=== PATIENT | female | born 1935 | race Caucasian/White ===

== ENCOUNTER → 2016-10-03 | Outpatient (CLI) | payer MEDICARE, OTHER ==
[~2016-10-03] MED LIST: AMLO10TA82 PO; ASPI-134 PO; ASPI-860 PO; CEPH500C PO; GBPN300C PO; LETR2.5T5 PO; LSNP20T PO; ONDAN4ODT PO; ONDN4T PO; OXYC-109 PO; PROP40TA5 PO; SIMV40TA2 PO; TRAM-25 PO
[2016-10-03 08:08] LABS: MEAN CORPUSCULAR HEMOGLOBIN 31.3 PG (26.0-34.0); MEAN CORPUSCULAR HGB CONC 32.3 g/dL (31.0-37.0); MEAN CORPUSCULAR VOLUME 97 FL (80-100); MEAN PLATELET VOLUME 9.7 FL (6.0-9.5); PLATELET COUNT 175 10^3uL (150-450); WHITE BLOOD COUNT 3.49 10^3uL (4.0-11.0)
[2016-10-03 08:14] LABS: BAND NEUTROPHILS % 1 % (0-6); EOSINOPHILS % 4 % (0-4); LYMPHOCYTES # 1.4 #; MONOCYTES # 0.2 #; MONOCYTES % 7 % (3-11); RBC MORPH NORMAL (NORMAL); SEGMENTED NEUTROPHILS % 46 % (51-67); TOTAL CELLS COUNTED 100
[2016-10-03 08:58] LABS: ANION GAP 15.5 MEQ/L (3-15); CALCULATED IONIZED CALCIUM 4.4 mg/dL (3.8-4.6); MAGNESIUM* 2.1 mg/dL (1.6-2.3); PHOSPHORUS 4.1 mg/dL (2.4-4.9); TOTAL PROTEIN 6.5 g/dL (6.4-8.5)
[2016-10-03 15:11] LABS: IRON 93 ug/dL (50-170); UNBOUND IRON CONTENT 176 ug/dl (126-382)
[2016-10-04 23:09] LABS: CA 27.29 C <12.0 U/mL (<=38.0)
== END ==
LOC: LAB 07:51
PROVIDERS: ATTEND Internal Medicine Hematology & Oncology
DX: C50.311 Malignant neoplasm of lower-inner quadrant of right female breast (principal)
CPT/HCPCS: 36415; 80053; 82306; 82728; 82746; 83540; 83550; 83615; 83735; 84100; 85007; 85027; 86300

== ENCOUNTER 2017-02-17 17:49 | Emergency (ER) | payer MEDICARE, OTHER ==
[~2017-02-17] VITALS: Ht 157.5 cm; Wt 71.2 kg
--- OUTSIDE RECORDS SUMMARY | 2017-02-17 17:55 | XMS REPORT | Continuity of Care Document ---
Author Author [facility] Address Unknown Phone Unavailable Allergies Active Description Code Type Severity Reaction Onset Reported/Identified Relationship to Patient Clinical Status Yes No Known Allergies [id number] Drug Allergy Unknown N/A 12/28/2012 Yes CIPROL CIPROL Unknown N/A 09/07/2013 Yes ciprofloxacin [id number] Drug Allergy Unknown N/A 11/05/2015 Yes ibuprofen [id number] Drug Allergy Unknown N/A 11/05/2015 Medications Problems Date Dx Coded Attending Type Code Diagnosis Diagnosed By 01/14/2013 Ot 366.9 01/14/2013 Ot 368.8 04/01/2013 Ot 366.9 04/01/2013 Ot 368.8 07/20/2013 PARVIZ STRAUSS, ERIN Bartlett Ot 592.1 07/20/2013 ERIN JJ MD Ot 789.09 09/07/2013 SURESH CALIX DO Ot 592.1 09/07/2013 SURESH CALIX DO Ot 789.09 04/22/2014 Puma Pierce Ot 354.8 04/22/2014 Puma Pierce Ot V57.1 08/12/2014 Ot V49.81 08/12/2014 Ot V76.12 08/12/2014 Ot 272.4 08/12/2014 Ot 401.9 08/12/2014 Ot V81.6 08/12/2014 SUSAN STRAUSS, PB Louise Ot V76.12 08/12/2014 SUSAN STRAUSS, PB Louise Ot 611.79 08/12/2014 SUSAN STRAUSS, PB Louise Ot 288.60 08/12/2014 SUSAN STRAUSS, PB Louise Ot 599.72 08/12/2014 SUSAN STRAUSS, PB Louise Ot 724.5 08/12/2014 SUSAN STRAUSS, PB Louise Ot 789.60 08/12/2014 Ngoc STRAUSS, Puma Marcos Ot 592.9 08/12/2014 SUSAN STRAUSS, BP Louise Ot 786.6 08/12/2014 SUSAN STRAUSS, PB Louise Ot 793.2 08/12/2014 SUSAN STRAUSS, PB Louise Ot 592.0 08/12/2014 SUSAN STRAUSS, PB Louise Ot V67.59 08/12/2014 Ngoc STRAUSS, Puma Marcos Ot 592.0 08/12/2014 Ngoc STRAUSS, Puma Marcos Ot 272.4 08/12/2014 Ngoc STRAUSS, Puma Marcos Ot 592.0 08/12/2014 Ngoc STRAUSS, Puma Marcos Ot V45.89 08/12/2014 Ngoc STRAUSS, Puma Marcos Ot V58.69 08/12/2014 Ngoc STRAUSS, Puma Marcos Ot 592.0 08/12/2014 Ngoc STRAUSS, Puma Marcos Ot 592.0 08/12/2014 SUSAN STRAUSS, PB Louise Ot 793.82 08/12/2014 Ngoc STRAUSS, Puma Marcos Ot 599.0 08/12/2014 Ngoc STRAUSS, Puma Marcos Ot 592.0 08/12/2014 Ot 354.8 08/12/2014 Ot V57.1 08/12/2014 SUSAN STRAUSS, PB Louise Ot 288.60 08/12/2014 SUSAN STRAUSS, PB Louise Ot 599.72 08/12/2014 SUSAN STRAUSS, PB Louise Ot 724.5 08/12/2014 SUSAN STRAUSS, PB Louise Ot 789.60 09/06/2014 NIDA STRAUSS, KERA Rivas Ot 719.45 09/06/2014 NIDA STRAUSS, KERA Rivas Ot 721.3 09/12/2014 [facility], IJEOMA L DYE ROOM HELPER Ot 553.1 09/12/2014 [facility], IJEOMA L DYE ROOM HELPER Ot 562.10 [facility] 576.8 09/12/2014 WILGERS, IJEOMA L DYE ROOM HELPER Ot 592.0 09/12/2014 WILGERS, IJEOMA L DYE ROOM HELPER Ot 599.70 09/12/2014 WILGERS, IJEOMA L DYE ROOM HELPER Ot 722.30 09/12/2014 WILGERS, IJEOMA L DYE ROOM HELPER Ot 724.2 09/12/2014 WILGERS, IJEOMA L DYE ROOM HELPER Ot 793.11 09/15/2014 [facility], IJEOMA L DYE ROOM HELPER Ot 424.0 09/15/2014 WILGERS, IJEOMA L DYE ROOM HELPER Ot 782.3 09/15/2014 SCOTTIJEOMA L DYE ROOM HELPER Ot 785.9 09/29/2014 BAYRONBLANCAIJEOMA DYE ROOM HELPER Ot 599.70 10/09/2014 Ot V49.81 10/09/2014 Ot V76.12 10/09/2014 Ot 272.4 10/09/2014 Ot 401.9 10/09/2014 Ot V81.6 10/09/2014 SUSAN STRAUSS, PB Louise Ot V76.12 10/09/2014 SUSAN STRAUSS, PB Louise Ot 611.79 10/09/2014 SUSAN STRAUSS, PB Louise Ot 288.60 10/09/2014 SUSAN STRAUSS, PB Louise Ot 599.72 10/09/2014 SUSAN STRAUSS, PB Louise Ot 724.5 10/09/2014 SUSAN STRAUSS, PB Louise Ot 789.60 10/09/2014 Ngoc STRAUSS, Puma Marcos Ot 592.9 10/09/2014 SUSAN STRAUSS, PB Louise Ot 786.6 10/09/2014 SUSAN STRAUSS, PB Louise Ot 793.2 10/09/2014 SUSAN STRAUSS, PB Louise Ot 592.0 10/09/2014 SUSAN STRAUSS, PB Louise Ot V67.59 10/09/2014 Ngoc STRAUSS, Puma Marcos Ot 592.0 10/09/2014 Ngoc STRAUSS, Puma Marcos Ot 272.4 10/09/2014 Ngoc STRAUSS, Puma Marcos Ot 592.0 10/09/2014 Ngoc STRAUSS, Puma Marcos Ot V45.89 10/09/2014 Ngoc STRAUSS, Puma Marcos Ot V58.69 10/09/2014 Ngoc STRAUSS, Puma Marcos Ot 592.0 10/09/2014 Ngoc STRAUSS, Puma Marcos Ot 592.0 10/09/2014 SUSAN STRAUSS, PB Louise Ot 793.82 10/09/2014 Ngoc STRAUSS, Puma Marcos Ot 599.0 10/09/2014 Ngoc STRAUSS, Puma Marcos Ot 592.0 10/09/2014 Ot 354.8 10/09/2014 Ot V57.1 10/09/2014 NIDA STRAUSS, KERA Rivas Ot 719.45 10/09/2014 NIDA STRAUSS, KERA Rivas Ot 721.3 10/09/2014 SCOTT IJEOMA L DYE ROOM HELPER Ot 599.0 10/09/2014 WILGERS, IJEOMA L DYE ROOM HELPER Ot 599.70 10/09/2014 WILGERS, IJEOMA L DYE ROOM HELPER Ot 782.3 10/09/2014 WILGERS, IJEOMA L DYE ROOM HELPER Ot 790.29 10/09/2014 WILGERS, IJEOMA L DYE ROOM HELPER Ot 424.0 10/09/2014 WILGERS, IJEOMA L DYE ROOM HELPER Ot 782.3 10/09/2014 WILGERS, IJEOMA L DYE ROOM HELPER Ot 785.9 10/09/2014 WILGERS, IJEOMA L DYE ROOM HELPER Ot 553.1 10/09/2014 WILGERS, IJEOMA L DYE ROOM HELPER Ot 562.10 10/09/2014 WILGERS, IJEOMA L DYE ROOM HELPER Ot 576.8 10/09/2014 WILGERS, IJEOMA L DYE ROOM HELPER Ot 592.0 10/09/2014 WILGERS, IJEOMA L DYE ROOM HELPER Ot 599.70 10/09/2014 WILGERS, IJEOMA L DYE ROOM HELPER Ot 722.30 10/09/2014 WILGERS, IJEOMA L DYE ROOM HELPER Ot 724.2 10/09/2014 WILGERS, IJEOMA L DYE ROOM HELPER Ot 793.11 10/09/2014 WILGERS, IJEOMA L DYE ROOM HELPER Ot 599.70 10/30/2014 Ngoc STRAUSS, Puma Marcos Ot 592.0 10/30/2014 Ngoc STRAUSS, Puma Marcos Ot 592.0 12/17/2014 Ot 272.4 12/17/2014 Ot 401.9 12/17/2014 Ot 729.5 12/23/2014 Ot 721.3 12/23/2014 Ot 722.10 12/23/2014 Ot 724.2 12/23/2014 Ot 753.10 01/12/2015 SUSAN STRAUSS, PB Louise Ot 786.6 01/12/2015 SUSAN STRAUSS, PB Louise Ot 793.2 01/12/2015 SUSAN STRAUSS, PB Louise Ot 592.0 01/12/2015 SUSAN STRAUSS, PB Louise Ot V67.59 01/12/2015 Ngoc STRAUSS, Puma Marcos Ot 592.0 01/12/2015 Ngoc STRAUSS, Puma Marcos Ot 272.4 01/12/2015 Ngoc STRAUSS, Pmua Marcos Ot 592.0 01/12/2015 Ngoc STRAUSS, Puma Marcos Ot V45.89 01/12/2015 Ngoc STRAUSS, Puma Marcos Ot V58.69 01/12/2015 Ngoc STRAUSS, Puma Marcos Ot 592.0 01/12/2015 Ngoc STRAUSS, Puma Marcos Ot 592.0 01/12/2015 SUSAN STRAUSS, PB Louise Ot 793.82 01/12/2015 Ngoc STRAUSS, Puma Marcos Ot 599.0 01/12/2015 Ngoc STRAUSS, Puma Marcos Ot 592.0 01/12/2015 Ot 354.8 01/12/2015 Ot V57.1 01/12/2015 SUSAN STRAUSS, PB Louise Ot 786.6 01/12/2015 SUSAN STRAUSS, PB Louise Ot 793.2 01/12/2015 SUSAN STRAUSS, PB Louise Ot 592.0 01/12/2015 SUSAN STRAUSS, PB Louise Ot V67.59 01/12/2015 Ngoc STRAUSS, Puma Marcos Ot 592.0 01/12/2015 Ngoc STRAUSS, Puma Marcos Ot 272.4 01/12/2015 Ngoc STRAUSS, Puma Marcos Ot 592.0 01/12/2015 Ngoc STRAUSS, Puma Marcos Ot V45.89 01/12/2015 Ngoc STRAUSS, Puma Marcos Ot V58.69 01/12/2015 Ngoc STRAUSS, Puma Marcos Ot 592.0 01/12/2015 Ngoc STRAUSS, Puma Marcos Ot 592.0 01/12/2015 SUSAN STRAUSS, PB Louise Ot 793.82 01/12/2015 Ngoc STRAUSS, Puma Marcos Ot 599.0 01/12/2015 Ngoc STRAUSS, Puma Marcos Ot 592.0 01/12/2015 Ot 354.8 01/12/2015 Ot V57.1 01/12/2015 SUSAN STRAUSS, PB Louise Ot 288.60 01/12/2015 SUSAN STRAUSS, PB Louise Ot 599.72 01/12/2015 SUSAN STRAUSS, PB Louise Ot 724.5 01/12/2015 SUSAN STRAUSS, PB Louise Ot 789.60 01/12/2015 NIDA STRAUSS, KERA Rivas Ot 719.45 01/12/2015 NIDA STRAUSS, KERA Rivas Ot 721.3 01/12/2015 IJEOMA CHAVEZ L DYE ROOM HELPER Ot 599.0 01/12/2015 IJEOMA CHAVEZ L DYE ROOM HELPER Ot 599.70 01/12/2015 SCOTT IJEOMA L DYE ROOM HELPER Ot 782.3 01/12/2015 WILGERS, IJEOMA L DYE ROOM HELPER Ot 790.29 01/12/2015 WILGERS, IJEOMA L DYE ROOM HELPER Ot 424.0 01/12/2015 WILGERS, IJEOMA L DYE ROOM HELPER Ot 782.3 01/12/2015 WILGERS, IJEOMA L DYE ROOM HELPER Ot 785.9 01/12/2015 WILGERS, IJEOMA L DYE ROOM HELPER Ot 553.1 01/12/2015 WILGERS, IJEOMA L DYE ROOM HELPER Ot 562.10 01/12/2015 WILGERS, IJEOMA L DYE ROOM HELPER Ot 576.8 01/12/2015 WILGERS, IJEOMA L DYE ROOM HELPER Ot 592.0 01/12/2015 WILGERS, IJEOMA L DYE ROOM HELPER Ot 599.70 01/12/2015 WILGERS, IJEOMA L DYE ROOM HELPER Ot 722.30 01/12/2015 WILGERS, IJEOMA L DYE ROOM HELPER Ot 724.2 01/12/2015 WILGERS, IJEOMA L DYE ROOM HELPER Ot 793.11 01/12/2015 WILGERS, IJEOMA L DYE ROOM HELPER Ot 599.70 01/12/2015 Ngoc STRAUSS, Puma Marcos Ot 592.0 01/12/2015 Ot 721.3 01/12/2015 Ot 722.10 01/12/2015 Ot 724.2 01/12/2015 Ot 753.10 01/12/2015 Ot 272.4 01/12/2015 Ot 401.9 01/12/2015 Ot 729.5 02/05/2015 Manguoglu, Ali B Ot 722.52 02/12/2015 Manguoglu, Ali B Ot 724.00 02/12/2015 WILGERS, IJEOMA L DYE ROOM HELPER Ot 272.4 02/19/2015 SUSAN STRAUSS, PB Louise Ot 288.60 02/19/2015 SUSAN STRAUSS, PB Louise Ot 599.72 02/19/2015 SUSAN STRAUSS, PB Louise Ot 724.5 02/19/2015 SUSAN STRAUSS, PB Louise Ot 789.60 02/19/2015 NIDA STRAUSS, KERA Rivas Ot 719.45 02/19/2015 NIDA STRAUSS, KERA Rivas Ot 721.3 02/19/2015 WILGERS, IJEOMA L DYE ROOM HELPER Ot 599.0 02/19/2015 WILGERS, IJEOMA L DYE ROOM HELPER Ot 599.70 02/19/2015 WILGERS, IJEOMA L DYE ROOM HELPER Ot 782.3 02/19/2015 WILGERS, IJEOMA L DYE ROOM HELPER Ot 790.29 02/19/2015 WILGERS, IJEOMA L DYE ROOM HELPER Ot 424.0 02/19/2015 WILGERS, IJEOMA L DYE ROOM HELPER Ot 782.3 02/19/2015 WILGERS, IJEOMA L DYE ROOM HELPER Ot 785.9 02/19/2015 WILGERS, IJEOMA L DYE ROOM HELPER Ot 553.1 02/19/2015 WILGERS, IJEOMA L DYE ROOM HELPER Ot 562.10 02/19/2015 WILGERS, IJEOMA L DYE ROOM HELPER Ot 576.8 02/19/2015 WILGERS, IJEOMA L DYE ROOM HELPER Ot 592.0 02/19/2015 WILGERS, IJEOMA L DYE ROOM HELPER Ot 599.70 02/19/2015 WILGERS, IJEOMA L DYE ROOM HELPER Ot 722.30 02/19/2015 WILGERS, IJEOMA L DYE ROOM HELPER Ot 724.2 02/19/2015 WILGERS, IJEOMA L DYE ROOM HELPER Ot 793.11 02/19/2015 WILGERS, IJEOMA L DYE ROOM HELPER Ot 599.70 02/19/2015 Ngoc STRAUSS, Puma Marcos Ot 592.0 02/19/2015 Ot 721.3 02/19/2015 Ot 722.10 02/19/2015 Ot 724.2 02/19/2015 Ot 753.10 02/19/2015 Ot 272.4 02/19/2015 Ot 401.9 02/19/2015 Ot 729.5 02/19/2015 Manguoglu, Ali B Ot 722.52 02/19/2015 WILGERS, IJEOMA L DYE ROOM HELPER Ot 272.4 02/19/2015 Manguoglu, Ali B Ot 724.00 02/20/2015 Manguoglu, Ali B Ot 724.2 02/20/2015 Manguoglu, Ali B Ot V57.1 02/24/2015 Manguoglu, Ali B Ot 724.00 03/05/2015 Manguoglu, Ali B Ot 724.2 03/05/2015 Manguoglu, Ali B Ot V57.1 03/18/2015 WILGERS, IJEOMA L DYE ROOM HELPER Ot 793.82 03/18/2015 WILGERS, IJEOMA L DYE ROOM HELPER Ot V76.12 04/02/2015 WILGERS, IJEOMA L DYE ROOM HELPER Ot 611.79 06/04/2015 ELANA STRAUSS, ELEONORA J Ot 174.9 06/05/2015 ELANA STRAUSS, ELEONORA Ross Ot V64.3 06/10/2015 ELANA STRAUSS, ELEONORA J Ot 174.9 06/10/2015 ELANA STRAUSS, ELEONORA J Ot 174.9 06/10/2015 ELANA STRAUSS, ELEONORA J Ot 174.9 06/22/2015 NIDA STRAUSS, KERA Rivas Ot 174.9 06/22/2015 NIDA STRAUSS, KERA M Ot 272.4 06/22/2015 NIDA STRAUSS, KERA M Ot 401.9 06/24/2015 ELANA STRAUSS, ELEONORA J Ot 174.9 06/24/2015 ELANA STRAUSS, ELEONORA Ross Ot 174.9 07/01/[facility] 611.79 07/10/2015 NIDA STRAUSS, KERA M Ot 174.9 07/10/2015 NIDA STRAUSS, KERA M Ot 272.4 07/10/2015 NIDA STRAUSS, KERA M Ot 401.9 07/13/2015 NIDA STRAUSS, KERA M Ot 174.9 07/13/2015 NIDA STRAUSS, KERA M Ot 272.4 07/13/2015 NIDA STRAUSS, KERA M Ot 401.9 07/13/2015 NIDA STRAUSS, KERA M Ot 174.9 07/13/2015 NIDA STRAUSS, KERA M Ot 272.4 07/13/2015 NIDA STRAUSS, KERA M Ot 401.9 07/14/2015 IJEOMA CHAVEZ DYE ROOM HELPER Ot 611.79 07/14/2015 IJEOMA CHAVEZ DYE ROOM HELPER Ot 611.79 07/30/2015 ELEONORA HUITRON MD Ot 174.9 07/30/2015 ELEONORA HUITRON MD Ot C50.311 07/30/2015 ELEONORA HUITRON MD J Ot C50.919 08/10/2015 ELEONORA HUITRON MD J Ot C50.311 08/10/2015 ELEONORA HUITRON MD J Ot C50.919 09/08/2015 ELEONORA HUITRON MD Ot C50.311 09/08/2015 ELEONORA HUITRON MD Ot C50.919 09/24/2015 IJEOMA CHAVEZ DYE ROOM HELPER Ot E78.5 09/27/2015 ELEONORA HUITRON MD Ot C50.311 09/27/2015 ELEONORA HUITRON MD Ot C50.919 10/28/2015 Ngoc STRAUSS, Puma Marcos Ot N20.0 10/28/2015 Ngoc STRAUSS, Puma Marcos Ot Z87.442 11/05/2015 CATARINA STRAUSS, KINA Ot T81.31XA 11/05/2015 CATARINA STRAUSS, KINA Ot T81.4XXA 11/05/2015 CATARINA STRAUSS, KINA Ot Z90.11 11/05/2015 Ot 354.8 11/05/2015 Ot V57.1 11/05/2015 ELANA STRAUSS, ELEONORA Ross Ot C50.311 11/05/2015 ELANA STRAUSS, ELEONORA Ross Ot C50.919 11/05/2015 Ot 354.8 11/05/2015 Ot V57.1 11/05/2015 ELANA STRAUSS, ELEONORA Ross Ot C50.311 11/05/2015 ELANA STRAUSS, ELEONORA Ross Ot C50.919 11/16/2015 Ngoc STRAUSS, Puma Marcos Ot N20.0 11/16/2015 Ngoc STRAUSS, Puma Marcos Ot Z87.442 11/20/2015 ELANA STRAUSS, ELEONORA Ross Ot C50.311 12/20/2015 ELANA STRASUS, ELEONORA J Ot C50.311 01/04/2016 WILGERS, IJEOMA L DYE ROOM HELPER Ot 611.79 01/07/2016 WILGERS, IJEOMA L DYE ROOM HELPER Ot R53.83 01/07/2016 WILGERS, IJEOMA L DYE ROOM HELPER Ot R53.83 01/12/2016 WILGERS, IJEOMA L DYE ROOM HELPER Ot D64.9 ANEMIA, UNSPECIFIED 01/12/2016 WILGERS, IJEOMA L DYE ROOM HELPER Ot D64.9 ANEMIA, UNSPECIFIED 01/14/2016 WILGERS, IJEOMA L DYE ROOM HELPER Ot 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 01/14/2016 WILGERS, IJEOMA L DYE ROOM HELPER Ot I10 ESSENTIAL (PRIMARY) HYPERTENSION 01/14/2016 WILGERS, IJEOMA L DYE ROOM HELPER Ot R53.83 OTHER FATIGUE 01/17/2016 WILGERS, IJEOMA L DYE ROOM HELPER Ot D64.9 ANEMIA, UNSPECIFIED 01/24/2016 WILGERS, IJEOMA L DYE ROOM HELPER Ot D64.9 ANEMIA, UNSPECIFIED 01/28/2016 WILGERS, IJEOMA L DYE ROOM HELPER Ot D64.9 ANEMIA, UNSPECIFIED 02/02/2016 WILGERS, IJEOMA L DYE ROOM HELPER Ot 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 02/02/2016 WILGERS, IJEOMA L DYE ROOM HELPER Ot I10 ESSENTIAL (PRIMARY) HYPERTENSION 02/02/2016 WILGERS, IJEOMA L DYE ROOM HELPER Ot R53.83 OTHER FATIGUE 02/03/2016 WILGERS, IJEOMA L DYE ROOM HELPER Ot D64.9 ANEMIA, UNSPECIFIED 02/11/2016 WILGERS, IJEOMA L DYE ROOM HELPER Ot D64.9 ANEMIA, UNSPECIFIED 02/23/2016 WILGERS, IJEOMA L DYE ROOM HELPER Ot C50.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 NEOPLASM OF UNSP SITE OF RIGHT 02/23/2016 WILGERS, IJEOMA L DYE ROOM HELPER Ot C50.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 NEOPLASM OF UNSP SITE OF RIGHT 02/23/2016 WILGERS, IJEOMA L DYE ROOM HELPER Ot C50.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 NEOPLASM OF UNSP SITE OF RIGHT 02/25/2016 WILGERS, IJEOMA L DYE ROOM HELPER Ot R91.1 SOLITARY PULMONARY NODULE 02/25/2016 WILGERS, IJEOMA L DYE ROOM HELPER Ot Z85.3 PERSONAL HISTORY OF MALIGNANT NEOPLASM O 03/15/2016 WILGERS, IJEOMA L DYE ROOM HELPER Ot R91.1 SOLITARY PULMONARY NODULE 03/15/2016 WILGERS, IJEOMA L DYE ROOM HELPER Ot Z85.3 PERSONAL HISTORY OF MALIGNANT NEOPLASM O 04/04/2016 WILGERS, IJEOMA L DYE ROOM HELPER Ot D64.9 ANEMIA, UNSPECIFIED 04/04/2016 WILGERS, IJEOMA L DYE ROOM HELPER Ot D64.9 ANEMIA, UNSPECIFIED 04/04/2016 WILGERS, IJEOMA L DYE ROOM HELPER Ot D64.9 ANEMIA, UNSPECIFIED 04/07/2016 WILGERS, IJEOMA L DYE ROOM HELPER Ot D64.9 ANEMIA, UNSPECIFIED 04/18/2016 ELEONORA HUITRON MD Ot 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 04/18/2016 ELEONORA HUITRON MD Ot 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 04/22/2016 ELEONORA HUITRON MD Ot 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 05/13/2016 ELEONORA HUITRON MD Ot 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 05/16/2016 WILGERSIJEOMA L DYE ROOM HELPER Ot D64.9 ANEMIA, UNSPECIFIED 05/18/2016 ELEONORA HUITRON MD Ot 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 05/23/2016 NIDA STRAUSS, KERA Rivas Ot M48.00 SPINAL STENOSIS, SITE UNSPECIFIED 05/23/2016 NIDA STRAUSS, KERA Rivas Ot M54.5 LOW BACK PAIN 06/09/2016 NIDA STRAUSS, KERA Rivas Ot M48.00 SPINAL STENOSIS, SITE UNSPECIFIED 06/09/2016 NIDA STRAUSS, KERA Rivas Ot M54.5 LOW BACK PAIN 06/10/2016 NIDA STRAUSS, KERA Rivas Ot M48.06 SPINAL STENOSIS, LUMBAR REGION 06/10/2016 NIDA STRAUSS, KERA Rivas Ot M54.5 LOW BACK PAIN 06/13/2016 NIDA STRAUSS, KERA Rivas Ot M48.06 SPINAL STENOSIS, LUMBAR REGION 06/13/2016 NIDA STRAUSS, KERA Rivas Ot M54.5 LOW BACK PAIN 06/17/2016 NIDA STRAUSS, KERA Rivas Ot M48.06 SPINAL STENOSIS, LUMBAR REGION 06/17/2016 NIDA STRAUSS, KERA Rivas Ot M54.5 LOW BACK PAIN 06/23/2016 NIDA STRAUSS, KERA Rivas Ot M48.06 SPINAL STENOSIS, LUMBAR REGION 06/23/2016 NIDA STRAUSS, KERA Rivas Ot M54.5 LOW BACK PAIN 06/29/2016 NIDA STRAUSS, KERA Rivas Ot M48.06 SPINAL STENOSIS, LUMBAR REGION 06/29/2016 NIDA STRAUSS, KERA Rivas Ot M54.5 LOW BACK PAIN 07/04/2016 NIDA STRAUSS, KERA Rivas Ot M48.06 SPINAL STENOSIS, LUMBAR REGION 07/04/2016 NIDA STRAUSS, KERA Rivas Ot M54.5 LOW BACK PAIN 07/04/2016 NIDA STRAUSS, KERA Rivas Ot M48.06 SPINAL STENOSIS, LUMBAR REGION 07/04/2016 NIDA STRAUSS, KERA Rivas Ot M54.5 LOW BACK PAIN 07/11/2016 ELEONORA HUITRON MD J Ot 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 07/11/2016 ELEONORA HUITRON MD J Ot 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 07/11/2016 NIDA STRAUSS, KERA Rivas Ot M48.06 SPINAL STENOSIS, LUMBAR REGION 07/11/2016 NIDA STRAUSS, KERA Rivas Ot M54.5 LOW BACK PAIN 07/11/2016 NIDA STRAUSS, KERA Rivas Ot M48.06 SPINAL STENOSIS, LUMBAR REGION 07/11/2016 NIDA STRAUSS, KERA Rivas Ot M54.5 LOW BACK PAIN 07/13/2016 ELEONORA HUITRON MD J Ot 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 07/14/2016 ELEONORA HUITRON MD J Ot 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 07/17/2016 NIDA STRAUSS, KERA Rivas Ot M48.06 SPINAL STENOSIS, LUMBAR REGION 07/17/2016 NIDA STRAUSS, KERA Rivas Ot M54.5 LOW BACK PAIN 07/17/2016 NIDA STRAUSS, KERA Rivas Ot M48.06 SPINAL STENOSIS, LUMBAR REGION 07/17/2016 KERA ALVA MD Ot M54.5 LOW BACK PAIN 07/18/2016 NIDA STRAUSS, KERA Rivas Ot M48.07 SPINAL STENOSIS, LUMBOSACRAL REGION 07/18/2016 NIDA STRAUSS, KERA Rivas Ot M54.17 RADICULOPATHY, LUMBOSACRAL REGION 07/18/2016 NIDA STRAUSS, KERA Rivas Ot M62.81 MUSCLE WEAKNESS (GENERALIZED) 07/18/2016 NIDA STRAUSS, KERA Rivas Ot M79.604 PAIN IN RIGHT LEG 07/18/2016 KERA ALVA MD Ot M79.605 PAIN IN LEFT LEG 07/21/2016 KERA ALVA MD Ot M48.06 SPINAL STENOSIS, LUMBAR REGION 07/21/2016 KERA ALVA MD Ot M54.5 LOW BACK PAIN 07/21/2016 KERA ALVA MD Ot M48.06 SPINAL STENOSIS, LUMBAR REGION 07/21/2016 NIDA STRAUSS, KERA Rivas Ot M54.5 LOW BACK PAIN 08/02/2016 NIDA STRAUSS, KERA Rivas Ot M48.07 SPINAL STENOSIS, LUMBOSACRAL REGION 08/02/2016 KERA ALVA MD Ot M54.17 RADICULOPATHY, LUMBOSACRAL REGION 08/02/2016 KERA ALVA MD Ot M62.81 MUSCLE WEAKNESS (GENERALIZED) 08/02/2016 KERA ALVA MD Ot M79.604 PAIN IN RIGHT LEG 08/02/2016 KERA ALVA MD Ot M79.605 PAIN IN LEFT LEG 08/02/2016 ELEONORA HUITRON MD Ot 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 08/14/2016 KERA ALVA MD Ot M48.06 SPINAL STENOSIS, LUMBAR REGION 08/14/2016 KERA ALVA MD Ot M54.5 LOW BACK PAIN 08/15/2016 ELEONORA HUITRON MD Ot 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 08/15/2016 WILGERS, IJEOMA L DYE ROOM HELPER Ot D64.9 ANEMIA, UNSPECIFIED 08/15/2016 ELEONORA HUITRON MD Ot 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 08/15/2016 NIDA STRAUSS, KERA Rivas Ot M48.00 SPINAL STENOSIS, SITE UNSPECIFIED 08/15/2016 NIDA STRAUSS, KERA Rivas Ot M54.5 LOW BACK PAIN 08/26/2016 NIDA STRAUSS, KERA Rivas Ot M48.06 SPINAL STENOSIS, LUMBAR REGION 08/26/2016 NIDA STRAUSS, KERA Rivas Ot M54.5 LOW BACK PAIN 10/03/2016 ELEONORA HUITRON MD Ot 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 10/03/2016 ELEONORA HUITRON MD Ot 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 10/05/2016 ELEONORA HUITRON MD Ot 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 10/07/2016 ELEONORA HUITRON MD Ot 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 10/25/2016 ELEONORA HUITRON MD Ot 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 11/11/2016 ELEONORA HUITRON MD Ot 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 02/17/2017 ELEONORA HUITRON MD Ot E78.5 HYPERLIPIDEMIA, UNSPECIFIED 02/17/2017 ELEONORA HUITRON MD Ot 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 02/17/2017 ELEONORA HUITRON MD Ot Z79.899 OTHER LICENSED VOCATIONAL NURSE (CURRENT) DRUG THERAPY 02/17/2017 ELEONORA HUITRON MD Ot Z79.899 OTHER LICENSED VOCATIONAL NURSE (CURRENT) DRUG THERAPY 02/17/2017 ELEONORA HUITRON MD, Ot E78.5 HYPERLIPIDEMIA, UNSPECIFIED 02/17/2017 ELEONORA HUITRON MD Ot 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 02/17/2017 ELEONORA HUITRON MD Ot Z79.899 OTHER CUSTODIAL (CURRENT) DRUG THERAPY Procedures Code Description Performed By Performed On [id number] INTRODUCE OF ANTI-INFLAM INTO EPIDURAL S 05/16/2016 [id number] INTRODUCE OF LOCAL ANESTH INTO EPIDURAL 05/16/2016 [id number] 06/29/2016 [id number] 06/29/2016 Results Test Result Range CBC AND MANUAL DIFF - 07/11/16 08:37 Blood automated leukocyte count 3.87 4.0 -11.0 Erythrocytes 3.43 4.00-5.00 12.0-16.0;g/dL 11.1 12.0-15.5 Hematocrit 33.20 35.00-45.00 Automated erythrocyte mean corpuscular volume 97 80-100 Mean corpuscular hemoglobin (MCH) determination 32.4 26.0-34.0 Automated erythrocyte mean corpuscular hemoglobin concentration measurement ( mass/volume) 33.4 31.0-37.0 Erythrocyte distribution width 13.2 11.8 -15.6 Automated blood platelet count 164 150- 450 Automated blood platelet mean volume measurement 9.9 6.0-9.5 Total cell count 100 Blood segmented neutrophils percentage 67 51-67 Blood band neutrophil count as percentage of total leukocytes 2 0-6 LYMPHOCYTES % 22 20-46 Automated monocyte percentage 3 3-11 Eosinophil count auto 6 0-4 Basophils 0 0-2 Manual blood metamyelocytes/100 leukocytes 0 0-1 NEUTROPHILS(SEG) 2.6 NEUTROPHILS # BANDS 0.1 Blood lymphocytes manual count (number/volume) 0.8 Automated blood monocyte count 0.1 Blood absolute eosinophil count 0.2 Basophils 0.0 Erythrocyte morphology assessment NORMAL NORMAL Comprehensive metabolic panel - 07/11/16 08:37 Sodium measurement 114 70-110 Carbon dioxide measurement 24 22-29 Serum or plasma anion gap 15.4 3-15 BLOOD UREA NITROGEN 20 7-18 CREATININE SERUM 0.99 0.6-1.2 Brucella species antibody panel (IgG, IgM) 20 10-20 Estimated glomerular filtration rate (GFR) 65.6 Estimated glomerular filtration rate (GFR) non- 54.3 OSMOLALITY,CALCULATED 280 280-300 CALCIUM 9.2 8.8-10.8 Calculated ionized calcium measurement 4.1 3.8-4.6 BILIRUBIN,TOTAL 0.4 0.1-1.0 Serum or plasma alkaline phosphatase measurement 82 38-126 ASPARTATE AMINO TRANSFERASE 23 15-37 ALANINE AMINOTRANSFERASE 23 30-65 Serum or plasma total protein measurement 6.9 6.4-8.5 Serum or plasma albumin measurement 3.8 3.4-5.0 Serum or plasma albumin/globulin mass ratio 1.225 1.1-1.8 Phosphorus measurement - 07/11/16 08:37 Phosphorus measurement 3.5 2.4-4.9 Magnesium measurement - 07/11/16 08:37 Magnesium measurement 2.2 1.6-2.3 Lactate dehydrogenase (LDH) measurement - 07/11/16 08:37 Sodium measurement 294 313-618 Vitamin D+Metabolites - 07/11/16 08:37 Vitamin D+Metabolites 26.0 30.0-100.0 FERRITIN - 07/11/16 08:37 Serum or plasma ferritin measurement (mass/volume) 60 5-204 Iron and total iron binding capacity measurement - 07/11/16 08:37 Total cell count 16 11-46 Serum or plasma iron binding capacity measurement (mass/volume) 247 260-445 Serum or plasma unsaturated iron binding capacity measurement (mass/volume) 207 126-382 Serum or plasma iron measurement (mass/volume) 40 50-170 Cancer antigen 27-29 measurement - 07/11/16 08:37 Serum or plasma cancer antigen 27-29 measurement (units/volume) < <=38.0 CBC AND MANUAL DIFF - 10/03/16 07:57 Blood automated leukocyte count 3.49 4.0 -11.0 Erythrocytes 3.74 4.00-5.00 12.0-16.0;g/dL 11.7 12.0-15.5 Hematocrit 36.20 35.00-45.00 Automated erythrocyte mean corpuscular volume 97 80-100 Mean corpuscular hemoglobin (MCH) determination 31.3 26.0-34.0 Automated erythrocyte mean corpuscular hemoglobin concentration measurement ( mass/volume) 32.3 31.0-37.0 Erythrocyte distribution width 12.4 11.8 -15.6 Automated blood platelet count 175 150- 450 Automated blood platelet mean volume measurement 9.7 6.0-9.5 Total cell count 100 Blood segmented neutrophils percentage 46 51-67 Blood band neutrophil count as percentage of total leukocytes 1 0-6 LYMPHOCYTES % 41 20-46 Automated monocyte percentage 7 3-11 Eosinophil count auto 4 0-4 Basophils 1 0-2 Manual blood metamyelocytes/100 leukocytes 0 0-1 NEUTROPHILS(SEG) 1.6 NEUTROPHILS # BANDS 0.0 Blood lymphocytes manual count (number/volume) 1.4 Automated blood monocyte count 0.2 Blood absolute eosinophil count 0.1 Basophils 0.0 Erythrocyte morphology assessment NORMAL NORMAL Comprehensive metabolic panel - 10/03/16 07:57 Sodium measurement 86 70-110 Carbon dioxide measurement 25 22-29 Serum or plasma anion gap 15.5 3-15 BLOOD UREA NITROGEN 23 7-18 CREATININE SERUM 0.94 0.6-1.2 Brucella species antibody panel (IgG, IgM) 24 10-20 Estimated glomerular filtration rate (GFR) 69.7 Estimated glomerular filtration rate (GFR) non- 57.6 OSMOLALITY,CALCULATED 275 280-300 CALCIUM 9.5 8.8-10.8 Calculated ionized calcium measurement 4.4 3.8-4.6 BILIRUBIN,TOTAL 0.6 0.1-1.0 Serum or plasma alkaline phosphatase measurement 84 38-126 ASPARTATE AMINO TRANSFERASE 23 15-37 ALANINE AMINOTRANSFERASE 31 30-65 Serum or plasma total protein measurement 6.5 6.4-8.5 Serum or plasma albumin measurement 4.0 3.4-5.0 Serum or plasma albumin/globulin mass ratio 1.600 1.1-1.8 Phosphorus measurement - 10/03/16 07:57 Phosphorus measurement 4.1 2.4-4.9 Magnesium measurement - 10/03/16 07:57 Magnesium measurement 2.1 1.6-2.3 Lactate dehydrogenase (LDH) measurement - 10/03/16 07:57 Sodium measurement 343 313-618 Vitamin D+Metabolites - 10/03/16 07:57 Vitamin D+Metabolites 27.5 30.0-100.0 FERRITIN - 10/03/16 07:57 Serum or plasma ferritin measurement (mass/volume) 56 5-204 FOLIC ACID - 10/03/16 07:57 Serum or plasma folate measurement (mass/volume) 12.8 7.0-31.4 Iron and total iron binding capacity measurement - 10/03/16 07:57 Total cell count 35 11-46 Serum or plasma iron binding capacity measurement (mass/volume) 269 260-445 Serum or plasma unsaturated iron binding capacity measurement (mass/volume) 176 126-382 Serum or plasma iron measurement (mass/volume) 93 50-170 Cancer antigen 27-29 measurement - 10/03/16 07:57 Serum or plasma cancer antigen 27-29 measurement (units/volume) < <=38.0 CBC AND MANUAL DIFF - 02/17/17 07:38 Blood automated leukocyte count 2.90 4.0 -11.0 Erythrocytes 3.55 4.00-5.00 12.0-16.0;g/dL 11.2 12.0-15.5 Hematocrit 34.50 35.00-45.00 Automated erythrocyte mean corpuscular volume 97 80-100 Mean corpuscular hemoglobin (MCH) determination 31.5 26.0-34.0 Automated erythrocyte mean corpuscular hemoglobin concentration measurement ( mass/volume) 32.5 31.0-37.0 Erythrocyte distribution width 13.0 11.8 -15.6 Automated blood platelet count 153 150- 450 Automated blood platelet mean volume measurement 9.7 6.0-9.5 Total cell count 100 Blood segmented neutrophils percentage 54 51-67 Blood band neutrophil count as percentage of total leukocytes 0 0-6 LYMPHOCYTES % 36 20-46 Automated monocyte percentage 3 3-11 Eosinophil count auto 7 0-4 Basophils 0 0-2 Manual blood metamyelocytes/100 leukocytes 0 0-1 NEUTROPHILS(SEG) 1.6 NEUTROPHILS # BANDS 0.0 Blood lymphocytes manual count (number/volume) 1.0 Automated blood monocyte count 0.1 Blood absolute eosinophil count 0.1 Basophils 0.0 Erythrocyte morphology assessment NORMAL NORMAL Comprehensive metabolic panel - 02/17/17 07:38 Sodium measurement 81 70-110 CARBON DIOXIDE 25 22-29 Serum or plasma anion gap 13.9 3-15 BLOOD UREA NITROGEN 22 7-18 CREATININE SERUM 0.93 0.6-1.2 Brucella species antibody panel (IgG, IgM) 24 10-20 Estimated glomerular filtration rate (GFR) 70.4 Estimated glomerular filtration rate (GFR) non- 58.2 OSMOLALITY,CALCULATED 281 280-300 CALCIUM 9.5 8.8-10.8 Calculated ionized calcium measurement 4.4 3.8-4.6 BILIRUBIN,TOTAL 0.4 0.1-1.0 Serum or plasma alkaline phosphatase measurement 80 38-126 ASPARTATE AMINO TRANSFERASE 22 15-37 ALANINE AMINOTRANSFERASE 23 30-65 Serum or plasma total protein measurement 6.4 6.4-8.5 Serum or plasma albumin measurement 3.9 3.4-5.0 Serum or plasma albumin/globulin mass ratio 1.560 1.1-1.8 Lactate dehydrogenase (LDH) measurement - 02/17/17 07:38 Sodium measurement 3.8 2.4-4.9 Magnesium measurement - 02/17/17 07:38 Magnesium measurement 1.9 1.6-2.3 Lactate dehydrogenase (LDH) measurement - 02/17/17 07:38 Sodium measurement 271 313-618 Vitamin D+Metabolites - 02/17/17 07:38 Vitamin D+Metabolites 43.1 30.0-100.0 THYROID STIMULATING HORMONE* - 02/17/17 07:39 THYROID STIMULATING HORMONE 1.65 0.46- 4.68 LIPID PANEL - 02/17/17 07:39 Cholesterol 131 50-200 HDL Cholesterol 49 40-60 Triglycerides 95 10-150 LDL CHOLESTEROL 63 50-130 VLDL Cholesterol, calc 19 4.00-40.00 Cholesterol.total/Cholesterol.in HDL 2.7 0.0-5.0 Encounters ACCT No. Visit Date/Time Discharge Status Pt. Type Provider Facility Loc./Unit Complaint [id number] 07/27/2016 09:15:00 2015 00:01:00 DIS Outpatient NIDA STRAUSS, [facility] PT CHRONIC LBP [id number] 11/05/2015 07:33:00 2015 08:47:00 DIS Emergency CATARINA STRAUSS, [facility] ED [id number] 06/29/2015 08:29:00 2015 00:01:00 DIS Outpatient ELANA STRAUSS, [facility] LAB [id number] 06/08/2015 10:00:00 2014 00:01:00 DIS Outpatient ELANA STRAUSS [facility] LAB [id number] 06/22/2015 07:40:00 2014 23:59:59 CLS Outpatient ELANA STRAUSS [facility] LAB [id number] 06/16/2015 08:52:00 2014 23:59:59 CLS Outpatient NIDA STRAUSS, [facility] LAB [id number] 05/29/2015 14:59:00 2014 23:59:59 CLS Outpatient LEANA STRAUSS [facility] LAB [id number] 05/29/2015 14:29:00 2014 23:59:59 CLS Outpatient ELANA STRAUSS [facility] LAB [id number] 02/20/2015 13:00:00 2014 13:00:00 DIS Outpatient Waqar Leal [facility] PT [id number] 02/27/2015 12:34:00 2014 23:59:59 CLS Outpatient WILGERS [facility] RAD [id number] 02/20/2015 09:40:00 2014 23:59:59 CLS Outpatient WILGERS [facility] RAD [id number] 01/24/2015 10:40:00 2014 23:59:59 [id number] 01/22/2015 07:47:00 2014 23:59:59 CLS Outpatient WILGERS [facility] LAB [id number] 01/12/2015 12:56:00 2014 23:59:59 [facility] [id number] 10/09/2014 10:59:00 2014 23:59:59 CLS Outpatient Ngoc STRAUSS, [facility] RAD [id number] 08/26/2014 11:13:00 2013 23:59:59 CLS Outpatient [facility] LAB [id number] 08/26/2014 11:26:00 2013 11:26:00 CAN Preadmit SCOTT [facility] LAB [id number] 08/20/2014 10:17:00 2013 23:59:59 CLS Outpatient [facility] RAD [id number] 08/15/2014 12:25:00 2013 23:59:59 CLS Outpatient [facility] RAD [id number] 08/12/2014 10:38:00 2013 23:59:59 CLS Outpatient [facility] LAB [id number] 08/12/2014 10:14:00 2013 23:59:59 CLS Outpatient NIDA STRAUSS, [facility] RAD [id number] 03/20/2014 13:00:00 2013 00:01:00 DIS Outpatient Stan [facility] [id number] 02/27/2014 09:02:00 2013 23:59:59 CLS Outpatient Ngoc STRAUSS, [facility] [id number] 02/05/2014 09:30:00 2013 23:59:59 CLS Outpatient SUSAN STRAUSS, [facility] [id number] 01/20/2014 14:11:00 2013 23:59:59 CLS Outpatient Ngoc STRAUSS, [facility] LAB [id number] 12/31/2013 08:54:00 2013 23:59:59 CLS Outpatient Ngoc STRAUSS, [facility] LAB [id number] 12/26/2013 12:56:00 2013 23:59:59 CLS Outpatient Nogc STRAUSS, [facility] [id number] 11/21/2013 08:42:00 2013 23:59:59 CLS Outpatient Ngoc STRAUSS, [facility] [id number] 10/21/2013 10:25:00 2013 23:59:59 CLS Outpatient Ngoc TSRAUSS, [facility] [id number] 09/27/2013 10:02:00 2013 23:59:59 CLS Outpatient SUSAN STRAUSS, [facility] [id number] 09/11/2013 12:34:00 2012 23:59:59 CLS Outpatient SUSAN STRAUSS, [facility] [id number] 09/07/2013 04:26:00 2012 07:37:00 DIS Emergency FIFI [facility] ED [id number] 08/27/2013 10:00:00 2012 23:59:59 CLS Outpatient Ngoc STRAUSS, [facility] [id number] 07/23/2013 16:02:00 2012 23:59:59 CLS Outpatient SUSAN STRAUSS, [facility] LAB [id number] 07/22/2013 09:29:00 2012 23:59:59 CLS Outpatient SUSAN STRAUSS, [facility] [id number] 07/20/2013 01:02:00 2012 02:41:00 DIS Emergency PARVIZ STRAUSS, ERIN [facility] ED [id number] 06/19/2013 12:27:00 2012 23:59:59 CLS Outpatient SUSAN STRAUSS, [facility] RAD [id number] 02/24/2017 08:30:00 PEN Preadmit ELANA STRAUSS, [facility] RAD HISTORY OF BREAST CA - C50.311, Z79.899 - LONG TER [id number] 02/17/2017 17:51:00 ACT Emergency CATARINA STRAUSS, [facility] ED [id number] 02/17/2017 17:30:00 ACT Out[id number] 02/17/2017 07:33:00 ACT Outpatient ELANA STRAUSS, [facility] LAB [id number] 10/03/2016 07:51:00 ACT Outpatient ELANA STRAUSS, [facility] LAB [id number] 08/15/2016 13:00:00 PEN Preadmit NIDA STRAUSS, [facility] PT CHRONIC LBP [id number] 07/11/2016 08:29:00 ACT Outpatient ELANA STRAUSS, [facility] LAB [id number] 06/29/2016 08:18:00 ACT Outpatient NIDA STRAUSS, [facility] PMC CAUDAL BLOCK [id number] 05/16/2016 10:33:00 ACT Outpatient NIDA STRAUSS, [facility] PMC ABIDA [id number] 04/18/2016 07:56:00 ACT Outpatient ELANA STRAUSS, [facility] LAB [id number] 04/04/2016 07:28:00 ACT Outpatient [facility] LAB [id number] 02/23/2016 08:12:00 ACT Outpatient [facility] RAD [id number] 01/20/2016 10:50:00 ACT Outpatient [facility] LAB [id number] 01/12/2016 08:19:00 ACT Outpatient [facility] LAB [id number] 01/07/2016 14:40:00 [facility] LAB [id number] 10/26/2015 07:31:00 ACT Outpatient ELANA STRAUSS, [facility] LAB [id number] 10/13/2015 11:05:00 ACT Outpatient Ngoc STRAUSS, [facility] RAD [id number] 09/28/2015 00:02:00 PEN Preadmit ELANA STRAUSS, [facility] LAB [id number] 09/22/2015 08:05:00 ACT Outpatient BAYRONBLANCAIJEOMA [facility] LAB [id number] 12/01/2014 11:33:00 Document Registration [id number] 11/24/2014 11:54:00 Document Registration [id number] 04/23/2014 13:00:00 Document Registration [id number] 04/01/2013 07:52:00 Document Registration [id number] 01/14/2013 08:23:00 Document Registration [id number] 04/30/2012 09:11:00 Document Registration [id number] 03/08/2012 07:47:00 Document Registration
--- OUTSIDE RECORDS SUMMARY | 2017-02-17 17:59 | XMS REPORT | Continuity of Care Document ---
Author Author [facility] Address Unknown Phone Unavailable Allergies Active Description Code Type Severity Reaction Onset Reported/Identified Relationship to Patient Clinical Status Yes No Known Allergies [id number] Drug Allergy Unknown N/A 12/28/2012 Yes CIPROL CIPROL Unknown N/A 09/07/2013 Yes ciprofloxacin [id number] Drug Allergy Unknown N/A 11/05/2015 Yes ibuprofen [id number] Drug Allergy Unknown N/A 11/05/2015 Medications Problems [...] Puma Marcos Ot 592.9 08/12/2014 SUSAN STRAUSS, PB Louise Ot 786.6 08/12/2014 SUSAN STRAUSS, PB [...] NIDA STRAUSS, KERA Rivas Ot 721.3 09/12/2014 [facility], IJEOMA L BOATBUILDER APPRENTICE WOOD Ot 553.1 09/12/2014 [facility], IJEOMA L BOATBUILDER APPRENTICE WOOD Ot 562.10 09/12/2014 [facility] L BOATBUILDER APPRENTICE WOOD Ot 576.8 09/12/2014 WILGERS, IJEOMA L BOATBUILDER APPRENTICE WOOD Ot 592.0 09/12/2014 WILGERS, IJEOMA L BOATBUILDER APPRENTICE WOOD Ot 599.70 09/12/2014 WILGERS, IJEOMA L BOATBUILDER APPRENTICE WOOD Ot 722.30 09/12/2014 WILGERS, IJEOMA L BOATBUILDER APPRENTICE WOOD Ot 724.2 09/12/2014 WILGERS, IJEOMA L BOATBUILDER APPRENTICE WOOD Ot 793.11 09/15/2014 [facility], IJEOMA L BOATBUILDER APPRENTICE WOOD Ot 424.0 09/15/2014 WILGERS, IJEOMA L BOATBUILDER APPRENTICE WOOD Ot 782.3 09/15/2014 SCOTTIJEOMA L BOATBUILDER APPRENTICE WOOD Ot 785.9 09/29/2014 BAYRONBLANCAIJEOMA BOATBUILDER APPRENTICE WOOD Ot 599.70 10/09/2014 Ot V49.81 10/09/2014 Ot [...] Ot 354.8 10/09/2014 Ot V57.1 10/09/2014 NIDA STARUSS, KERA Rivas Ot 719.45 10/09/2014 NIDA STRAUSS, KERA Rivas Ot 721.3 10/09/2014 SCOTT IJEOMA L BOATBUILDER APPRENTICE WOOD Ot 599.0 10/09/2014 WILGERS, IJEOMA L BOATBUILDER APPRENTICE WOOD Ot 599.70 10/09/2014 WILGERS, IJEOMA L BOATBUILDER APPRENTICE WOOD Ot 782.3 10/09/2014 WILGERS, IJEOMA L BOATBUILDER APPRENTICE WOOD Ot 790.29 10/09/2014 WILGERS, IJEOMA L BOATBUILDER APPRENTICE WOOD Ot 424.0 10/09/2014 WILGERS, IJEOMA L BOATBUILDER APPRENTICE WOOD Ot 782.3 10/09/2014 WILGERS, IJEOMA L BOATBUILDER APPRENTICE WOOD Ot 785.9 10/09/2014 WILGERS, IJEOMA L BOATBUILDER APPRENTICE WOOD Ot 553.1 10/09/2014 WILGERS, IJEOMA L BOATBUILDER APPRENTICE WOOD Ot 562.10 10/09/2014 WILGERS, IJEOMA L BOATBUILDER APPRENTICE WOOD Ot 576.8 10/09/2014 WILGERS, IJEOMA L BOATBUILDER APPRENTICE WOOD Ot 592.0 10/09/2014 WILGERS, IJEOMA L BOATBUILDER APPRENTICE WOOD Ot 599.70 10/09/2014 WILGERS, IJEOMA L BOATBUILDER APPRENTICE WOOD Ot 722.30 10/09/2014 WILGERS, IJEOMA L BOATBUILDER APPRENTICE WOOD Ot 724.2 10/09/2014 WILGERS, IJEOMA L BOATBUILDER APPRENTICE WOOD Ot 793.11 10/09/2014 WILGERS, IJEOMA L BOATBUILDER APPRENTICE WOOD Ot 599.70 10/30/2014 Ngoc STRAUSS, Puma Marcos Ot 592.0 10/30/2014 Ngoc STRAUSS, Puma Marcos Ot 592.0 12/17/2014 Ot 272.4 12/17/2014 Ot 401.9 12/17/2014 Ot 729.5 12/23/2014 Ot 721.3 12/23/2014 Ot 722.10 12/23/2014 Ot 724.2 12/23/2014 Ot 753.10 01/12/2015 SUSAN STRAUSS, PB Louise Ot 786.6 01/12/2015 SUSAN STRAUSS, PB Louise Ot 793.2 01/12/2015 USSAN STRAUSS, PB Louise Ot 592.0 01/12/2015 SUSAN STRAUSS, PB Louise Ot V67.59 01/12/2015 Ngoc STRAUSS, Puma Marcos Ot 592.0 01/12/2015 Ngoc STRAUSS, Puma Marcos Ot 272.4 01/12/2015 Ngoc STRAUSS, Puma Marcos Ot 592.0 01/12/2015 Ngoc STRAUSS, Puma Marcos Ot V45.89 01/12/2015 Ngoc STRAUSS, Puma Marcos Ot V58.69 01/12/2015 Ngoc STRAUSS, Puam Marcos Ot 592.0 01/12/2015 Ngoc STRAUSS, Puma [...] Rivas Ot 721.3 01/12/2015 IJEOMA CHAVEZ L BOATBUILDER APPRENTICE WOOD Ot 599.0 01/12/2015 IJEOMA CHAVEZ L BOATBUILDER APPRENTICE WOOD Ot 599.70 01/12/2015 SCOTT IJEOMA L BOATBUILDER APPRENTICE WOOD Ot 782.3 01/12/2015 WILGERS, IJEOMA L BOATBUILDER APPRENTICE WOOD Ot 790.29 01/12/2015 WILGERS, IJEOMA L BOATBUILDER APPRENTICE WOOD Ot 424.0 01/12/2015 WILGERS, IJEOMA L BOATBUILDER APPRENTICE WOOD Ot 782.3 01/12/2015 WILGERS, IJEOMA L BOATBUILDER APPRENTICE WOOD Ot 785.9 01/12/2015 WILGERS, IJEOMA L BOATBUILDER APPRENTICE WOOD Ot 553.1 01/12/2015 WILGERS, IJEOMA L BOATBUILDER APPRENTICE WOOD Ot 562.10 01/12/2015 WILGERS, IJEOMA L BOATBUILDER APPRENTICE WOOD Ot 576.8 01/12/2015 WILGERS, IJEOMA L BOATBUILDER APPRENTICE WOOD Ot 592.0 01/12/2015 WILGERS, IJEOMA L BOATBUILDER APPRENTICE WOOD Ot 599.70 01/12/2015 WILGERS, IJEOMA L BOATBUILDER APPRENTICE WOOD Ot 722.30 01/12/2015 WILGERS, IJEOMA L BOATBUILDER APPRENTICE WOOD Ot 724.2 01/12/2015 WILGERS, IJEOMA L BOATBUILDER APPRENTICE WOOD Ot 793.11 01/12/2015 WILGERS, IJEOMA L BOATBUILDER APPRENTICE WOOD Ot 599.70 01/12/2015 Ngoc STRAUSS, Puma Marcos Ot 592.0 01/12/2015 Ot 721.3 01/12/2015 Ot 722.10 01/12/2015 Ot 724.2 01/12/2015 Ot 753.10 01/12/2015 Ot 272.4 01/12/2015 Ot 401.9 01/12/2015 Ot 729.5 02/05/2015 Manguoglu, Ali B Ot 722.52 02/12/2015 Manguoglu, Ali B Ot 724.00 02/12/2015 WILGERS, IJEOMA L BOATBUILDER APPRENTICE WOOD Ot 272.4 02/19/2015 SUSAN STRAUSS, PB Louise Ot 288.60 02/19/2015 SUSAN STRAUSS, PB Louise Ot 599.72 02/19/2015 SUSAN STRAUSS, PB Louise Ot 724.5 02/19/2015 SUSAN STRAUSS, PB Louise Ot 789.60 02/19/2015 NIDA STRAUSS, KERA Rivas Ot 719.45 02/19/2015 NIDA STRAUSS, KERA Rivas Ot 721.3 02/19/2015 WILGERS, IJEOMA L BOATBUILDER APPRENTICE WOOD Ot 599.0 02/19/2015 WILGERS, IJEOMA L BOATBUILDER APPRENTICE WOOD Ot 599.70 02/19/2015 WILGERS, IJEOMA L BOATBUILDER APPRENTICE WOOD Ot 782.3 02/19/2015 WILGERS, IJEOMA L BOATBUILDER APPRENTICE WOOD Ot 790.29 02/19/2015 WILGERS, IJEOMA L BOATBUILDER APPRENTICE WOOD Ot 424.0 02/19/2015 WILGERS, IJEOMA L BOATBUILDER APPRENTICE WOOD Ot 782.3 02/19/2015 WILGERS, IJEOMA L BOATBUILDER APPRENTICE WOOD Ot 785.9 02/19/2015 WILGERS, IJEOMA L BOATBUILDER APPRENTICE WOOD Ot 553.1 02/19/2015 WILGERS, IJEOMA L BOATBUILDER APPRENTICE WOOD Ot 562.10 02/19/2015 WILGERS, IJEOMA L BOATBUILDER APPRENTICE WOOD Ot 576.8 02/19/2015 WILGERS, IJEOMA L BOATBUILDER APPRENTICE WOOD Ot 592.0 02/19/2015 WILGERS, IJEOMA L BOATBUILDER APPRENTICE WOOD Ot 599.70 02/19/2015 WILGERS, IJEOMA L BOATBUILDER APPRENTICE WOOD Ot 722.30 02/19/2015 WILGERS, IJEOMA L BOATBUILDER APPRENTICE WOOD Ot 724.2 02/19/2015 WILGERS, IJEOMA L BOATBUILDER APPRENTICE WOOD Ot 793.11 02/19/2015 WILGERS, IJEOMA L BOATBUILDER APPRENTICE WOOD Ot 599.70 02/19/2015 Ngoc STRAUSS, Puma Marcos Ot 592.0 02/19/2015 Ot 721.3 02/19/2015 Ot 722.10 02/19/2015 Ot 724.2 02/19/2015 Ot 753.10 02/19/2015 Ot 272.4 02/19/2015 Ot 401.9 02/19/2015 Ot 729.5 02/19/2015 Manguoglu, Ali B Ot 722.52 02/19/2015 WILGERS, IJEOMA L BOATBUILDER APPRENTICE WOOD Ot 272.4 02/19/2015 Manguoglu, Ali B Ot 724.00 02/20/2015 Manguoglu, Ali B Ot 724.2 02/20/2015 Manguoglu, Ali B Ot V57.1 02/24/2015 Manguoglu, Ali B Ot 724.00 03/05/2015 Manguoglu, Ali B Ot 724.2 03/05/2015 Manguoglu, Ali B Ot V57.1 03/18/2015 WILGERS, IJEOMA L BOATBUILDER APPRENTICE WOOD Ot 793.82 03/18/2015 WILGERS, IJEOMA L BOATBUILDER APPRENTICE WOOD Ot V76.12 04/02/2015 WILGERS, IJEOMA L BOATBUILDER APPRENTICE WOOD Ot 611.79 06/04/2015 ELANA STRAUSS, ELEONORA J [...] ELANA STRAUSS, ELEONORA Ross Ot 174.9 07/01/[facility] BOATBUILDER APPRENTICE WOOD Ot 611.79 07/10/2015 NIDA STRAUSS, KERA M [...] KERA M Ot 401.9 07/14/2015 IJEOMA CHAVEZ BOATBUILDER APPRENTICE WOOD Ot 611.79 07/14/2015 IJEOMA CHAVEZ BOATBUILDER APPRENTICE WOOD Ot 611.79 07/30/2015 ELEONORA HUITRON MD Ot 174.9 07/30/2015 ELEONORA HUITRON MD Ot C50.311 07/30/2015 ELEONORA HUITRON MD J Ot C50.919 08/10/2015 ELEONORA HUITRON MD J Ot C50.311 08/10/2015 ELEONORA HUITRON MD J Ot C50.919 09/08/2015 ELEONORA HUITRON MD Ot C50.311 09/08/2015 ELEONORA HUITRON MD Ot C50.919 09/24/2015 IJEOMA CHAVEZ BOATBUILDER APPRENTICE WOOD Ot E78.5 09/27/2015 ELEONORA HUITRON MD Ot [...] STRAUSS, ELEONORA Ross Ot C50.311 12/20/2015 ELANA STRAUSS, ELEONORA J Ot C50.311 01/04/2016 WILGERS, IJEOMA L BOATBUILDER APPRENTICE WOOD Ot 611.79 01/07/2016 WILGERS, IJEOMA L BOATBUILDER APPRENTICE WOOD Ot R53.83 01/07/2016 WILGERS, IJEOMA L BOATBUILDER APPRENTICE WOOD Ot R53.83 01/12/2016 WILGERS, IJEOMA L BOATBUILDER APPRENTICE WOOD Ot D64.9 ANEMIA, UNSPECIFIED 01/12/2016 WILGERS, IJEOMA L BOATBUILDER APPRENTICE WOOD Ot D64.9 ANEMIA, UNSPECIFIED 01/14/2016 WILGERS, IJEOMA L BOATBUILDER APPRENTICE WOOD Ot 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 01/14/2016 WILGERS, IJEOMA L BOATBUILDER APPRENTICE WOOD Ot I10 ESSENTIAL (PRIMARY) HYPERTENSION 01/14/2016 WILGERS, IJEOMA L BOATBUILDER APPRENTICE WOOD Ot R53.83 OTHER FATIGUE 01/17/2016 WILGERS, IJEOMA L BOATBUILDER APPRENTICE WOOD Ot D64.9 ANEMIA, UNSPECIFIED 01/24/2016 WILGERS, IJEOMA L BOATBUILDER APPRENTICE WOOD Ot D64.9 ANEMIA, UNSPECIFIED 01/28/2016 WILGERS, IJEOMA L BOATBUILDER APPRENTICE WOOD Ot D64.9 ANEMIA, UNSPECIFIED 02/02/2016 WILGERS, IJEOMA L BOATBUILDER APPRENTICE WOOD Ot 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 02/02/2016 WILGERS, IJEOMA L BOATBUILDER APPRENTICE WOOD Ot I10 ESSENTIAL (PRIMARY) HYPERTENSION 02/02/2016 WILGERS, IJEOMA L BOATBUILDER APPRENTICE WOOD Ot R53.83 OTHER FATIGUE 02/03/2016 WILGERS, IJEOMA L BOATBUILDER APPRENTICE WOOD Ot D64.9 ANEMIA, UNSPECIFIED 02/11/2016 WILGERS, IJEOMA L BOATBUILDER APPRENTICE WOOD Ot D64.9 ANEMIA, UNSPECIFIED 02/23/2016 WILGERS, IJEOMA L BOATBUILDER APPRENTICE WOOD Ot C50.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 NEOPLASM OF UNSP SITE OF RIGHT 02/23/2016 WILGERS, IJEOMA L BOATBUILDER APPRENTICE WOOD Ot C50.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 NEOPLASM OF UNSP SITE OF RIGHT 02/23/2016 WILGERS, IJEOMA L BOATBUILDER APPRENTICE WOOD Ot C50.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 NEOPLASM OF UNSP SITE OF RIGHT 02/25/2016 WILGERS, IJEOMA L BOATBUILDER APPRENTICE WOOD Ot R91.1 SOLITARY PULMONARY NODULE 02/25/2016 WILGERS, IJEOMA L BOATBUILDER APPRENTICE WOOD Ot Z85.3 PERSONAL HISTORY OF MALIGNANT NEOPLASM O 03/15/2016 WILGERS, IJEOMA L BOATBUILDER APPRENTICE WOOD Ot R91.1 SOLITARY PULMONARY NODULE 03/15/2016 WILGERS, IJEOMA L BOATBUILDER APPRENTICE WOOD Ot Z85.3 PERSONAL HISTORY OF MALIGNANT NEOPLASM O 04/04/2016 WILGERS, IJEOMA L BOATBUILDER APPRENTICE WOOD Ot D64.9 ANEMIA, UNSPECIFIED 04/04/2016 WILGERS, IJEOMA L BOATBUILDER APPRENTICE WOOD Ot D64.9 ANEMIA, UNSPECIFIED 04/04/2016 WILGERS, IJEOMA L BOATBUILDER APPRENTICE WOOD Ot D64.9 ANEMIA, UNSPECIFIED 04/07/2016 WILGERS, IJEOMA L BOATBUILDER APPRENTICE WOOD Ot D64.9 ANEMIA, UNSPECIFIED 04/18/2016 ELEONORA HUITRON MD Ot 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 04/18/2016 ELEONORA HUITRON MD Ot 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 04/22/2016 ELEONORA HUITRON MD Ot 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 05/13/2016 ELEONORA HUITRON MD Ot 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 05/16/2016 WILGERSIJEOMA L BOATBUILDER APPRENTICE WOOD Ot D64.9 ANEMIA, UNSPECIFIED 05/18/2016 ELEONORA HUITRON [...] Ot M54.5 LOW BACK PAIN 07/11/2016 ELEONORA HUITORN MD J Ot C50.311 MALIG NEOPLM OF [...] LOWER-INNER QUADRANT OF 08/15/2016 WILGERS, IJEOMA L BOATBUILDER APPRENTICE WOOD Ot D64.9 ANEMIA, UNSPECIFIED 08/15/2016 ELEONORA HUITRON [...] 02/17/2017 ELEONORA HUITRON MD Ot Z79.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 Type Provider Facility Loc./Unit Complaint [id number] 07/27/2016 09:15:00 2015 00:01:00 DIS Outpatient NIDA STRAUSS, [facility] PT CHRONIC LBP [id number] 11/05/2015 07:33:00 2015 08:47:00 DIS Emergency CATARINA STRAUSS, [facility] ED [id number] 06/29/2015 08:29:00 2015 00:01:00 DIS Outpatient ELANA STRAUSS, [facility] LAB [id number] 06/08/2015 10:00:00 2014 00:01:00 DIS Outpatient ELANA STRAUSS [facility] LAB [id number] 06/22/2015 07:40:00 2014 23:59:59 CLS Outpatient ELANA STRAUSS [facility] LAB [id number] 06/16/2015 08:52:00 2014 23:59:59 CLS Outpatient NIDA STRAUSS, [facility] LAB [id number] 05/29/2015 14:59:00 2014 23:59:59 CLS Outpatient ELANA STRAUSS [facility] LAB [id number] 05/29/2015 14:29:00 2014 23:59:59 CLS Outpatient ELANA STRAUSS [facility] LAB [id number] 02/20/2015 13:00:00 2014 13:00:00 DIS Outpatient Waqar Leal [facility] PT [id number] 02/27/2015 12:34:00 2014 23:59:59 CLS Outpatient WILGERS [facility] RAD [id number] 02/20/2015 09:40:00 2014 23:59:59 CLS Outpatient WILGERS [facility] RAD [id number] 01/24/2015 10:40:00 2014 23:59:59 [id number] 01/22/2015 07:47:00 2014 23:59:59 CLS Outpatient WILGERS [facility] LAB [id number] 01/12/2015 12:56:00 2014 23:59:59 [id number] 10/09/2014 10:59:00 2014 23:59:59 CLS Outpatient Ngoc STRAUSS, [facility] RAD [id number] 08/26/2014 11:13:00 2013 23:59:59 CLS Outpatient [facility] LAB [id number] 08/26/2014 11:26:00 2013 11:26:00 CAN Preadmit SCOTT [facility] LAB [id number] 08/20/2014 10:17:00 2013 23:59:59 CLS Outpatient [facility] RAD [id number] 08/15/2014 12:25:00 2013 23:59:59 CLS Outpatient [facility] RAD [id number] 08/12/2014 10:38:00 2013 23:59:59 CLS Outpatient [facility] LAB [id number] 08/12/2014 10:14:00 2013 23:59:59 CLS Outpatient NIDA STRAUSS, [facility] RAD [id number] 03/20/2014 13:00:00 2013 00:01:00 DIS Outpatient [facility] [id number] 02/27/2014 09:02:00 2013 23:59:59 CLS Outpatient Ngoc STRAUSS, [facility] [id number] 02/05/2014 09:30:00 2013 23:59:59 CLS Outpatient SUSAN STRAUSS, [facility] [id number] 01/20/2014 14:11:00 2013 23:59:59 CLS Outpatient Ngoc STRAUSS, [facility] LAB [id number] 12/31/2013 08:54:00 2013 23:59:59 CLS Outpatient Ngoc STRAUSS, [facility] LAB [id number] 12/26/2013 12:56:00 2013 23:59:59 CLS Outpatient Ngoc STRAUSS, [facility] [id number] 11/21/2013 08:42:00 2013 23:59:59 CLS Outpatient Ngoc STRAUSS, [facility] [id number] 10/21/2013 10:25:00 2013 23:59:59 CLS Outpatient Ngoc STRAUSS, [facility] [id number] 09/27/2013 10:02:00 2013 23:59:59 CLS Outpatient SUSAN STRAUSS, [facility] [id number] 09/11/2013 12:34:00 2012 23:59:59 CLS Outpatient SUSAN STRAUSS, [facility] [id number] 09/07/2013 04:26:00 2012 07:37:00 DIS Emergency FIFI [facility] ED [id number] 08/27/2013 10:00:00 2012 23:59:59 CLS Outpatient Ngoc STRAUSS, [facility] [id number] 07/23/2013 16:02:00 2012 23:59:59 CLS Outpatient SUSAN STRAUSS, [facility] LAB [id number] 07/22/2013 09:29:00 2012 23:59:59 CLS Outpatient SUSAN STRAUSS, [facility] [id number] 07/20/2013 01:02:00 2012 02:41:00 DIS Emergency PARVIZ STRAUSS, ERIN [facility] ED [id number] 06/19/2013 12:27:00 2012 23:59:59 CLS Outpatient SUSAN STRAUSS, [facility] RAD [id number] 02/24/2017 08:30:00 PEN Preadmit ELANA STRAUSS, [facility] RAD HISTORY OF BREAST CA - C50.311, Z79.899 - LONG TER [id number] 02/17/2017 17:51:00 ACT Emergency CATARINA STRAUSS, [facility] ED [id number] 02/17/2017 17:30:00 ACT Out[facility] CONNOLLY[id number]/17/2017 07:33:00 ACT Outpatient ELANA STRAUSS, [facility] LAB [id number] 10/03/2016 07:51:00 ACT Outpatient ELANA STRAUSS, [facility] LAB [id number] 08/15/2016 13:00:00 PEN Preadmit NIDA STRAUSS, [facility] PT CHRONIC LBP [id number] 07/11/2016 08:29:00 ACT Outpatient ELANA STRAUSS, [facility] LAB [id number] 06/29/2016 08:18:00 ACT Outpatient NIDA STRAUSS, [facility] PMC CAUDAL BLOCK [id number] 05/16/2016 10:33:00 ACT Outpatient NIDA STRAUSS, [facility] PMC ABIDA [id number] 04/18/2016 07:56:00 ACT Outpatient ELANA STRAUSS, [facility] LAB [id number] 04/04/2016 07:28:00 ACT Outpatient [facility] LAB [id number] 02/23/2016 08:12:00 ACT Outpatient [facility] RAD [id number] 01/20/2016 10:50:00 ACT Outpatient [facility] LAB [id number] 01/12/2016 08:19:00 ACT Outpatient [facility] LAB [id number] 01/07/2016 14:40:00 [facility] [id number] 10/26/2015 07:31:00 ACT Outpatient ELANA STRAUSS, [facility] LAB [id number] 10/13/2015 11:05:00 ACT Outpatient Ngoc STRAUSS, [facility] RAD [id number] 09/28/2015 00:02:00 PEN Preadmit ELANA STRAUSS, [facility] LAB [id number] 09/22/2015 08:05:00 ACT Outpatient BAYRONBLANCAIJEOMA [facility] LAB [id number] 12/01/2014 11:33:00 Document Registration [id number] 11/24/2014 11:54:00 Document Registration [id number] 04/23/2014 13:00:00 Document Registration [id number] 04/01/2013 07:52:00 Document Registration [id number] 01/14/2013 08:23:00 Document Registration [id number] 04/30/2012 09:11:00 Document Registration [id number] 03/08/2012 07:47:00 Document Registration
[2017-02-17] MEDS ORDERED: ONDANSETRON 4 MG (ZOFRAN) ORAL DISSOLVE TAB PO ONE (19:25)
[2017-02-17] MEDS ORDERED: morphine INJ 4 MG/ML 1 ML SYRINGE IM ONE (19:25)
--- NOTE | 2017-02-17 21:03 | Diagnostic Imaging Report ---
Indication: Left arm pain and swelling after recent blood draw. Comparison: None. Technique: The left upper extremity deep venous system was interrogated from the common femoral vein through the popliteal vein. These images were assessed for grayscale appearance, color and spectral Doppler blood flow, compression, and augmentation. Findings: There is no evidence of intraluminal filling defect. Normal compression and augmentation is noted throughout. There does appear to be a hematoma within the left upper arm measuring 3.9 cm. There is a small neck noted centrally suggesting this is likely a pseudoaneurysm arising from the left brachial artery. Impression: 1. No sonographic evidence of deep venous thrombosis in the left upper extremity. 2. 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 Dictated by: Dictated on workstation # [id number]
[2017-02-17] MEDS ORDERED: morphine INJ 4 MG/ML 1 ML SYRINGE IM PRN (21:30)
[2017-02-17 22:07] VITALS: BP 140/73
--- NOTE | 2017-02-17 22:19 | NUR ---
Pt left with niece POV to go to [facility].
== END 2017-02-17 22:20 | disposition short-term general hospital (02) ==
LOC: ED 17:51
DX: S45.192A Other specified injury of brachial artery, left side, initial encounter (principal); Y84.7 Blood-sampling as the cause of abnormal reaction of the patient, or of later complication, without mention of misadventure at the time of the procedure
CPT/HCPCS: 93971; 96372; 99282; A9270; J2270; 99284

== ENCOUNTER → 2017-02-17 | Outpatient (CLI) | payer MEDICARE, OTHER ==
[2017-02-17 17:57] VITALS: BP 181/92
--- NOTE | 2017-02-17 17:57 | Urgent Care T Sheet Gen (E) ---
Intake General Temperature (Fahrenheit): 97.2 Pulse: 72 Blood Pressure Systolic: 181 Blood Pressure Diastolic: 92 Respirations: 20 SPO2: 98 Description of Symptoms Patient presents with proximal LUE swelling, bruising and pain. patient has history of R mastectomy with lymph node removal. Nothing on the L side. Patient had blood drawn this AM and noticed symptoms a few hours after. takes no blood thinners. arm is very large and sore. states it is hard to move it. notes shoulder pain as well. History of Present Illness Allergies: Coded Allergies: ciprofloxacin (Verified Allergy, Unknown, 11/05/15) ibuprofen (Verified Allergy, Unknown, 11/05/15) Home Meds Active Scripts Tramadol HCl (Ultram)50 Mg Paikor32 Mg PO Q4H PRN #30 Prov:ERIN JJ MD 07/20/13 Reported Medications Aspirin 81 Mg Tablet.dr81 Mg PO DAILY 05/16/16 Letrozole 2.5 Mg Tablet2.5 Mg PO DAILY 05/16/16 Gabapentin 300 Mg Qwiwpqo644 Mg PO BID 05/16/16 Cephalexin 500 Mg Wedyzso854 Mg PO BID 11/05/15 Propranolol HCl 40 Mg Dorzmz91 Mg PO 01/11/13 Respiratory Constitutional Symptoms: No syptoms reported Musculoskeletal: Muscle pain Skin: Change in color All Other Systems Reviewed Remaining Systems: All other systems reviewed with negative findings Past Svpudhs-Ygregb-Klmzcg Hx Patient's Social History Recent foreign travel: No Surgeries/Hospitalizations Hospitalization/Surgery Hx: Lung back kidney stones x5 carpal tunnel right mastectomy Respiratory Respiratory History: Other, see comment Comment: lobectomy history Cardiovascular Cardiovascular History: Hypercholesterolemia Neuro/Muscular Neuro/Muscular History: Back Problems Comment: tremors Reproductive System Sexually Transmitted Diseases: No Genitouinary Genitourinary History: Other, see comments Comment: History of kidney stones. History of pyelonephritis. Gastrointestinal GI/Endocrine History: None Diabetes Diabetes: No HEENT Impaired Vision: Glasses Hearing Impaired: None Integumentary Integumentary History: None Cancer History of Cancer?: No Psychosocial Behavior Disorders: None Physical Exam Physical Exam General Appearance: WD/WN Skin Exam: Other (bruising) Extremity Exam: Normal capillary refill (radial pulse intact) Tenderness Swelling (examination of the L UE reveals severe swelling when compared to the R size. the proximal L UE is approx 4x the size of the R. bruising is noted along the antecubital fossa and proximal. pain with active shoulder movement and active elbow movement.) Departure Urgent Care Impression Impression: Primary Impression: Left upper extremity swelling Departure Departed Disposition: To [facility] ED Condition: Stable Referrals: KERA ALVA MD (PCP) Additional Instructions: With the sudden onset following venous access, most likely this is a venous thrombosis. With the size and pain associated with the arm, the patient needs to be evaluated at the ER. Report called. Patient is arriving via private vehicle All questions were answered. End of report . MARÍA RAMOS February 17, 2017 17:57
== END ==
LOC: MHUC 17:30
PROVIDERS: ATTEND Physician Assistant
DX: M79.89 Other specified soft tissue disorders (principal)

== ENCOUNTER → 2017-02-17 | Outpatient (CLI) | payer MEDICARE, OTHER ==
[2017-02-17 07:50] LABS: MEAN CORPUSCULAR HGB CONC 32.5 g/dL (31.0-37.0); MEAN CORPUSCULAR VOLUME 97 FL (80-100); MEAN PLATELET VOLUME 9.7 FL (6.0-9.5); PLATELET COUNT 153 10^3uL (150-450)
[2017-02-17 07:55] LABS: MEAN CORPUSCULAR HEMOGLOBIN 31.5 PG (26.0-34.0)
[2017-02-17 07:58] LABS: BAND NEUTROPHILS % 0 % (0-6); EOSINOPHILS % 7 % (0-4); MONOCYTES # 0.1 #; MONOCYTES % 3 % (3-11); RBC MORPH NORMAL (NORMAL); SEGMENTED NEUTROPHILS % 54 % (51-67); TOTAL CELLS COUNTED 100
[2017-02-17 09:26] LABS: ALBUMIN 3.9 g/dL (3.4-5.0); ANION GAP 13.9 MEQ/L (3-15); CALCULATED IONIZED CALCIUM 4.4 mg/dL (3.8-4.6); MAGNESIUM* 1.9 mg/dL (1.6-2.3); TOTAL PROTEIN 6.4 g/dL (6.4-8.5)
== END ==
LOC: LAB 07:33
PROVIDERS: ATTEND Internal Medicine Hematology & Oncology
DX: Z51.81 Encounter for therapeutic drug level monitoring (principal); Z79.899 Other long term (current) drug therapy; C50.311 Malignant neoplasm of lower-inner quadrant of right female breast; D64.9 Anemia, unspecified; E78.5 Hyperlipidemia, unspecified
CPT/HCPCS: 36415; 80053; 80061; 80184; 80188; 82306; 83615; 83735; 84100; 84443; 85007; 85027